=== PATIENT | female | born 1965 | race Caucasian/White ===

== ENCOUNTER 2017-09-19 15:52 | Emergency (ER) | payer MEDICAID ==
[~2017-09-19] VITALS: Ht 167.6 cm; Wt 107.0 kg
[~2017-09-19 15:52] MED LIST: AMOXICILLIN500 M2 PO; ATARAX25 MG PO; BACTRIM DS 8001 TA1 PO; CIPROFLOXACIN500 MG PO; CLARITIN10 MG PO; CORTISPORIN SUS10 ML OT; CRANBERRY1 CAP PO; FLEXERIL10 MG PO; FLONASE ALLERG9.9 ML NS; HYDROCODONE BIT1 T11 PO; IRON FERROUS S325 MG PO; IRON325 M1 PO; MACROBID100 M1 PO; MEGACE PO; MEGACE40 MG PO; MOTRIN600 MG PO; MOTRIN800 MG PO; NAPROSYN500 MG PO; PHENERGAN25 M1 PO; PREDNISONE10 MG PO; PREDNISONE20 M1 PO; PREDNISONE20 MG PO; PRILOSEC20 M2 PO; PYRIDIUM100 MG PO; PYRIDIUM200 MG PO; SEPTRA DS 800 M1 TAB PO; SUDAFED30 MG PO; TRAMADOL HCL50 MG PO; ULTRAM50 MG PO; VIBRAMYCIN100 MG PO; VICODIN 5/500 505 MG PO; ZANTAC150 MG PO; ZITHROMAX Z PA250 MG PO; ZITHROMAX250 MG PO; ZOFRAN4 MG PO
[2017-09-19 16:35] LABS: BASO # 0.1 10*3/uL (0.0-0.1); BASO % 0.5 % (0.0-1.0); EOS # 0.2 10*3/uL (0.0-0.4); EOS % 2.1 % (1.0-4.0); HEMATOCRIT 40.2 % (37.0-47.0); HEMOGLOBIN 13.7 g/dl (12.0-16.0); LYMPH # 2.2 10*3/uL (1.3-4.4); LYMPH % 24.1 % (27.0-41.0); MEAN CELL VOLUME 92.2 fl (81.0-99.0); MEAN CORPUSCULAR HGB 31.4 pg (27.0-31.0); MEAN CORPUSCULAR HGB CONC 34.1 g/dl (33.0-37.0); MEAN PLATELET VOLUME 10.2 fl (9.6-12.3); MONO # 0.5 10*3/uL (0.1-1.0); MONO % 5.9 % (3.0-9.0); NEUT # 6.2 10*3/uL (2.3-7.9); NEUT % 67.2 % (47.0-73.0); PLATELET COUNT AUTOMATED 275 10*3/uL (130-400); RED BLOOD COUNT 4.36 10*6/uL (4.10-5.10); RED CELL DISTRI WIDTH 12.7 % (0-14.5); WHITE BLOOD COUNT 9.2 10*3/uL (4.8-10.8)
[2017-09-19 16:53] LABS: ALBUMIN 3.4 gm/dl (3.1-4.5); CREATININE 1.2 mg/dL (0.55-1.02); POTASSIUM 3.8 mmol/L (3.5-5.1); TOTAL PROTEIN 7.8 gm/dL (6.4-8.2)
[2017-09-19] MEDS ORDERED: ZOFRAN ODT4 MG SL (17:06)
== END 2017-09-19 22:40 | disposition home or self-care (01) ==
LOC: ED 15:52
PROVIDERS: Nurse Practitioner Family
DX: R11.0 Nausea (principal); R10.9 Unspecified abdominal pain; Z98.51 Tubal ligation status; Z98.890 Other specified postprocedural states; Z79.899 Other long term (current) drug therapy; Z88.8 Allergy status to other drugs, medicaments and biological substances

== ENCOUNTER 2017-10-25 10:55 | Emergency (ER) | payer MEDICAID ==
[~2017-10-25] VITALS: Wt 107.5 kg
[~2017-10-25 10:55] MED LIST changes: +ZOFRAN ODT4 MG SL
[2017-10-25] MEDS ORDERED: METHYLPRED-DP4 MG PO (11:14)
[2017-10-25] MEDS ORDERED: OXYBUTYNIN CHLOR5 MG PO (11:14)
[2017-10-25] MEDS ORDERED: DULOXETINE HCL30 MG PO (11:14)
[2017-10-25] MEDS ORDERED: AVPAK AZITHROM250 M1 PO (11:14)
[2017-10-25] MEDS ORDERED: NAPROSYN500 MG PO (12:20)
== END 2017-10-25 12:23 | disposition home or self-care (01) ==
LOC: ED 10:55
DX: S80.12XA Contusion of left lower leg, initial encounter (principal); K21.9 Gastro-esophageal reflux disease without esophagitis; Z98.51 Tubal ligation status; Z98.890 Other specified postprocedural states; Z79.899 Other long term (current) drug therapy; Z88.8 Allergy status to other drugs, medicaments and biological substances; W01.198A Fall on same level from slipping, tripping and stumbling with subsequent striking against other object, initial encounter; Y93.H3 Activity, building and construction; Y92.89 Other specified places as the place of occurrence of the external cause; Y99.9 Unspecified external cause status

== ENCOUNTER 2021-04-24 12:48 | Emergency (ER) | payer OTHER ==
[~2021-04-24 12:48] MED LIST changes: +AVPAK AZITHROM250 M1 PO; +DULOXETINE HCL30 MG PO; +METHYLPRED-DP4 MG PO; +OXYBUTYNIN CHLOR5 MG PO
== END 2021-04-24 14:05 | disposition home or self-care (01) ==
LOC: ED 12:48
DX: U07.1 COVID-19 (principal); Z88.8 Allergy status to other drugs, medicaments and biological substances; Z79.2 Long term (current) use of antibiotics; Z79.899 Other long term (current) drug therapy; Z98.1 Arthrodesis status; Z98.51 Tubal ligation status; Z87.42 Personal history of other diseases of the female genital tract; Z98.890 Other specified postprocedural states

== ENCOUNTER → 2021-10-17 | Outpatient (CLI) | payer OTHER | END | disposition home or self-care (01) | LOC: MAMMO 10-10 07:45 | PROVIDERS: ATTEND Family Medicine | DX: Z12.31 Encounter for screening mammogram for malignant neoplasm of breast (principal) ==

== ENCOUNTER → 2022-03-30 | Day surgery (SDC) | payer OTHER ==
[~2022-03-30] VITALS: Ht 162.5 cm; Wt 90.7 kg
[2022-03-30 07:17] VITALS: BP 105/66
[2022-03-30 10:01] VITALS: BP 91/44
[2022-03-30 10:16] VITALS: BP 92/50
[2022-03-30 10:31] VITALS: BP 95/60
[2022-03-30 10:46] VITALS: BP 101/56
[2022-03-30 11:01] VITALS: BP 110/61
== END | disposition home or self-care (01) ==
LOC: SDC 03-28 08:00
PROVIDERS: ATTEND Orthopaedic Surgery
DX: G56.03 Carpal tunnel syndrome, bilateral upper limbs (principal); F32.9 Major depressive disorder, single episode, unspecified; G43.909 Migraine, unspecified, not intractable, without status migrainosus; Z90.49 Acquired absence of other specified parts of digestive tract; Z98.890 Other specified postprocedural states; Z98.51 Tubal ligation status

== ENCOUNTER → 2022-04-20 | Day surgery (SDC) | payer OTHER ==
[~2022-04-20] MED LIST changes: +OMNICEF300 MG PO
[2022-04-20 07:54] VITALS: BP 100/64
[2022-04-20 08:43] VITALS: BP 95/60
[2022-04-20 08:59] VITALS: BP 103/58
[2022-04-20 09:15] VITALS: BP 110/64
== END | disposition home or self-care (01) ==
LOC: SDC 04-18 14:00
PROVIDERS: ATTEND Orthopaedic Surgery
DX: G56.03 Carpal tunnel syndrome, bilateral upper limbs (principal); F32.9 Major depressive disorder, single episode, unspecified; G43.909 Migraine, unspecified, not intractable, without status migrainosus; Z90.49 Acquired absence of other specified parts of digestive tract; Z98.890 Other specified postprocedural states

== ENCOUNTER 2022-04-22 11:32 | Emergency (ER) | payer OTHER ==
[~2022-04-22] VITALS: Ht 162.5 cm; Wt 90.7 kg
[~2022-04-22 11:32] MED LIST changes: -OMNICEF300 MG PO
[2022-04-22 12:24] LABS: HEMATOCRIT 44.2 % (37.0-47.0); MEAN CELL VOLUME 93.2 fl (81.0-99.0); MEAN CORPUSCULAR HGB 31.9 pg (27.0-31.0); MEAN CORPUSCULAR HGB CONC 34.2 g/dl (33.0-37.0); MEAN PLATELET VOLUME 10.2 fl (9.6-12.3); PLATELET COUNT AUTOMATED 213 10*3/uL (130-400); RED BLOOD COUNT 4.74 10*6/uL (4.10-5.10); WHITE BLOOD COUNT 10.4 10*3/uL (4.8-10.8)
[2022-04-22 12:25] LABS: MANUAL DIFF REFLEX YES
[2022-04-22 12:40] LABS: ALKALINE PHOSPHATASE 96 U/L (45-117); BUN 10 mg/dl (7-24); CHLORIDE 107 mmol/L (98-107); CREATININE 1.14 mg/dL (0.55-1.02); SGOT/AST 20 IU/L (3-35); SGPT/ALT 18 U/L (12-78); SODIUM 138 mmol/L (136-145); TOTAL PROTEIN 7.7 gm/dL (6.4-8.2)
[2022-04-22 12:42] LABS: POTASSIUM 3.9 mmol/L (3.5-5.1)
[2022-04-22 12:43] LABS: PLATELET SUFFICIENCY NORMAL (NORMAL); POLYCHROMASIA SLIGHT; TOTAL CELLS COUNTED 100 #CELLS
[2022-04-22 14:03] LABS: BILIRUBIN Negative (Negative); BLOOD Trace-Intact (Negative); CLARITY Turbid (Clear); COLOR Yellow (Yellow); GLUCOSE Negative (Negative); KETONE Negative (Negative); LEUKO ESTERASE 3+ (Negative); NITRITE Negative (Negative)
[2022-04-22 14:18] LABS: BACTERIA 4+; EPITHELIAL CELLS TNTC; WBC TNTC wbc/hpf (0-5)
[2022-04-22] MEDS ORDERED: OMNICEF300 MG PO (14:26)
== END 2022-04-22 14:40 | disposition home or self-care (01) ==
LOC: ED 11:32
PROVIDERS: Student in an Organized Health Care Education/Training Program
DX: U07.1 COVID-19 (principal); B34.9 Viral infection, unspecified; N39.0 Urinary tract infection, site not specified; Z88.8 Allergy status to other drugs, medicaments and biological substances; Z98.51 Tubal ligation status; Z90.49 Acquired absence of other specified parts of digestive tract

== ENCOUNTER → 2022-06-05 | Outpatient (CLI) | payer OTHER ==
[~2022-06-05] MED LIST changes: +OMNICEF300 MG PO
== END | disposition home or self-care (01) ==
LOC: RAD 11:36
PROVIDERS: ATTEND Family Medicine
DX: J06.9 Acute upper respiratory infection, unspecified (principal)

== ENCOUNTER 2022-07-19 11:31 | Emergency (ER) | payer OTHER ==
[~2022-07-19] VITALS: Ht 165.1 cm; Wt 86.2 kg
[2022-07-19] MEDS ORDERED: IBU800 M2 PO (12:21)
== END 2022-07-19 13:48 | disposition home or self-care (01) ==
LOC: ED 11:31
DX: S92.901A Unspecified fracture of right foot, initial encounter for closed fracture (principal); Z88.8 Allergy status to other drugs, medicaments and biological substances; Z98.51 Tubal ligation status; Z90.49 Acquired absence of other specified parts of digestive tract; Z98.890 Other specified postprocedural states; X50.1XXA Overexertion from prolonged static or awkward postures, initial encounter; Y93.89 Activity, other specified; Y92.89 Other specified places as the place of occurrence of the external cause; Y99.8 Other external cause status

== ENCOUNTER → 2022-07-28 | Outpatient (CLI) | payer OTHER ==
[~2022-07-28] MED LIST changes: +IBU800 M2 PO
== END | disposition home or self-care (01) ==
LOC: RAD 11:36
PROVIDERS: ATTEND Orthopaedic Surgery
DX: S92.901A Unspecified fracture of right foot, initial encounter for closed fracture (principal); X58.XXXA Exposure to other specified factors, initial encounter; Y93.89 Activity, other specified; Y92.89 Other specified places as the place of occurrence of the external cause; Y99.8 Other external cause status

== ENCOUNTER → 2022-08-11 | Outpatient (CLI) | payer OTHER | END | disposition home or self-care (01) | LOC: ORTHO 04:35 | PROVIDERS: ATTEND Orthopaedic Surgery | DX: S92.351D Displaced fracture of fifth metatarsal bone, right foot, subsequent encounter for fracture with routine healing (principal); X58.XXXD Exposure to other specified factors, subsequent encounter ==

== ENCOUNTER 2022-11-11 10:48 | Emergency (ER) | payer OTHER ==
[~2022-11-11] VITALS: Ht 162.5 cm; Wt 93.0 kg
[2022-11-11] MEDS ORDERED: POLYMYXIN B/TRI10 M1 OPH (11:19)
== END 2022-11-11 11:21 | disposition home or self-care (01) ==
LOC: ED 10:48
DX: H10.9 Unspecified conjunctivitis (principal); G43.909 Migraine, unspecified, not intractable, without status migrainosus; Z88.8 Allergy status to other drugs, medicaments and biological substances; Z98.51 Tubal ligation status; Z98.890 Other specified postprocedural states

== ENCOUNTER → 2022-12-30 | Outpatient (CLI) | payer OTHER ==
[~2022-12-30] MED LIST changes: +POLYMYXIN B/TRI10 M1 OPH
[2022-12-30 08:47] LABS: BASO # 0.1 10*3/uL (0.0-0.1); BASO % 1.1 % (0.0-1.0); EOS # 0.2 10*3/uL (0.0-0.4); EOS % 2.9 % (1.0-4.0); HEMATOCRIT 42.8 % (37.0-47.0); LYMPH # 1.8 10*3/uL (1.3-4.4); LYMPH % 29.6 % (27.0-41.0); MEAN CELL VOLUME 94.5 fl (81.0-99.0); MEAN CORPUSCULAR HGB 31.1 pg (27.0-31.0); MEAN CORPUSCULAR HGB CONC 32.9 g/dl (33.0-37.0); MONO # 0.4 10*3/uL (0.1-1.0); NEUT # 3.6 10*3/uL (2.3-7.9); NEUT % 59.2 % (47.0-73.0); PLATELET COUNT AUTOMATED 236 10*3/uL (130-400); RED BLOOD COUNT 4.53 10*6/uL (4.10-5.10); RED CELL DISTRI WIDTH 12.1 % (0-14.5); WHITE BLOOD COUNT 6.1 10*3/uL (4.8-10.8)
[2022-12-30 09:20] LABS: ALKALINE PHOSPHATASE 92 U/L (46-116); BUN 10 mg/dl (9-23); CHLORIDE 108 mmol/L (98-107); CHOLESTEROL 236 mg/dL (<200); LDL CHOLESTEROL 161 mg/dL (9-159); THYROID STIM HORMONE (HS) 4.389 uIU/ml (0.550-4.780); TOTAL PROTEIN 6.8 gm/dL (6.0-8.0); TRIGLYCERIDES 191 mg/dl (<150)
[2022-12-30 09:22] LABS: SGPT/ALT < 7 U/L (10-49)
== END | disposition home or self-care (01) ==
LOC: LAB 08:23
PROVIDERS: ATTEND Student in an Organized Health Care Education/Training Program
DX: Z13.220 Encounter for screening for lipoid disorders (principal); I95.9 Hypotension, unspecified; R73.9 Hyperglycemia, unspecified; R53.83 Other fatigue

== ENCOUNTER 2023-04-04 16:19 | Emergency (ER) | payer OTHER ==
[~2023-04-04] VITALS: Ht 162.5 cm; Wt 92.1 kg
[2023-04-04] MEDS ORDERED: TRAZODONE50 MG PO (16:37)
[2023-04-04] MEDS ORDERED: ZOLOFT50 MG PO (16:37)
[2023-04-04 19:42] LABS: BASO # 0.1 10*3/uL (0.0-0.1); BASO % 0.7 % (0.0-1.0); EOS # 0.2 10*3/uL (0.0-0.4); EOS % 1.8 % (1.0-4.0); HEMATOCRIT 42.2 % (37.0-47.0); LYMPH # 2.3 10*3/uL (1.3-4.4); LYMPH % 27.1 % (27.0-41.0); MEAN CELL VOLUME 96.6 fl (81.0-99.0); MEAN CORPUSCULAR HGB 31.1 pg (27.0-31.0); MEAN CORPUSCULAR HGB CONC 32.2 g/dl (33.0-37.0); MEAN PLATELET VOLUME 9.8 fl (9.6-12.3); MONO # 0.5 10*3/uL (0.1-1.0); MONO % 6.1 % (3.0-9.0); NEUT # 5.3 10*3/uL (2.3-7.9); NEUT % 64.1 % (47.0-73.0); PLATELET COUNT AUTOMATED 252 10*3/uL (130-400); RED BLOOD COUNT 4.37 10*6/uL (4.10-5.10); RED CELL DISTRI WIDTH 12.7 % (0-14.5); WHITE BLOOD COUNT 8.3 10*3/uL (4.8-10.8)
[2023-04-04 20:04] LABS: BILIRUBIN Negative (Negative); BLOOD Negative (Negative); CLARITY Clear (Clear); COLOR Yellow (Yellow); GLUCOSE Negative (Negative); KETONE Trace (Negative); LEUKO ESTERASE 1+ (Negative); NITRITE Negative (Negative); PH 5.5 (4.5-8.0); SPECIFIC GRAVITY 1.025 (1.001-1.030); UROBILINOGEN 0.2 E.U./dl (0.0-1.0)
[2023-04-04 20:11] LABS: POTASSIUM 3.7 mmol/L (3.4-5.1); TOTAL PROTEIN 7.3 gm/dL (6.0-8.0)
[2023-04-04 20:17] LABS: BACTERIA 1+; CALCIUM OXALATE CRYSTALS 1+
[2023-04-04] MEDS ORDERED: PEPCID40 MG PO (21:38)
[2023-04-04] MEDS ORDERED: SEPTDS PO (21:38)
[2023-04-04] MEDS ORDERED: ONDANSETRON HYDR4 M1 PO (21:38)
== END 2023-04-04 21:45 | disposition home or self-care (01) ==
LOC: ED 16:19
PROVIDERS: Emergency Medicine
DX: K52.9 Noninfective gastroenteritis and colitis, unspecified (principal); N39.0 Urinary tract infection, site not specified; K92.1 Melena; F17.200 Nicotine dependence, unspecified, uncomplicated; Z88.8 Allergy status to other drugs, medicaments and biological substances; Z79.899 Other long term (current) drug therapy; Z98.51 Tubal ligation status; Z87.42 Personal history of other diseases of the female genital tract; Z98.890 Other specified postprocedural states

== ENCOUNTER → 2023-09-04 | Outpatient (CLI) | payer OTHER ==
[~2023-09-04] MED LIST changes: +ONDANSETRON HYDR4 M1 PO; +PEPCID40 MG PO; +SEPTDS PO; +TRAZODONE50 MG PO; +ZOLOFT50 MG PO
== END | disposition home or self-care (01) ==
LOC: RAD 11:25
PROVIDERS: ATTEND Family Medicine
DX: M79.651 Pain in right thigh (principal)

== ENCOUNTER 2023-12-07 04:23 | Emergency (ER) | payer OTHER ==
[~2023-12-07] VITALS: Wt 93.4 kg
[2023-12-07] MEDS ORDERED: FAMOTIDINE 50 ML IV ONE (04:30)
[2023-12-07] MEDS ORDERED: diphenhydrAMINE hydrochloride 50 MG/ML VIAL IV ONE (04:30)
[2023-12-07] MEDS ORDERED: methylPREDNISolone sod succ 125 MG VIAL IV ONE (04:30)
== END 2023-12-07 06:01 | disposition home or self-care (01) ==
LOC: ED 04:23
DX: R21 Rash and other nonspecific skin eruption (principal); T78.40XA Allergy, unspecified, initial encounter; G43.909 Migraine, unspecified, not intractable, without status migrainosus; Z88.8 Allergy status to other drugs, medicaments and biological substances; Z98.51 Tubal ligation status; Z98.890 Other specified postprocedural states; Z90.49 Acquired absence of other specified parts of digestive tract; X58.XXXA Exposure to other specified factors, initial encounter

== ENCOUNTER 2023-12-09 09:41 | Emergency (ER) | payer OTHER ==
[~2023-12-09] VITALS: Ht 162.5 cm; Wt 87.5 kg
[2023-12-09] MEDS ORDERED: diphenhydrAMINE hydrochloride 50 MG/ML VIAL IV ONE (10:10)
[2023-12-09] MEDS ORDERED: FAMOTIDINE 50 ML IV ONE (10:10)
[2023-12-09] MEDS ORDERED: methylPREDNISolone sod succ 125 MG VIAL IV ONE (10:10)
== END 2023-12-09 11:01 | disposition home or self-care (01) ==
LOC: ED 09:41
DX: L50.9 Urticaria, unspecified (principal); T36.1X5A Adverse effect of cephalosporins and other beta-lactam antibiotics, initial encounter; G43.909 Migraine, unspecified, not intractable, without status migrainosus; Z88.1 Allergy status to other antibiotic agents; Z88.8 Allergy status to other drugs, medicaments and biological substances; Z98.51 Tubal ligation status; Z90.49 Acquired absence of other specified parts of digestive tract; Z98.890 Other specified postprocedural states; Y92.89 Other specified places as the place of occurrence of the external cause

== ENCOUNTER 2024-07-02 09:22 | Emergency (ER) | payer OTHER ==
[~2024-07-02] VITALS: Ht 162.5 cm; Wt 96.7 kg
[2024-07-02] MEDS ORDERED: SERTRALINE HYD100 MG PO (09:32)
[2024-07-02] MEDS ORDERED: AVPAK AZITHROM250 M1 PO (09:50)
== END 2024-07-02 09:54 | disposition home or self-care (01) ==
LOC: ED 09:22
DX: J32.9 Chronic sinusitis, unspecified (principal); I10 Essential (primary) hypertension; Z88.1 Allergy status to other antibiotic agents; Z88.8 Allergy status to other drugs, medicaments and biological substances; Z79.899 Other long term (current) drug therapy; Z87.42 Personal history of other diseases of the female genital tract

== ENCOUNTER 2024-08-03 22:33 | Emergency (ER) | payer OTHER ==
[~2024-08-03] VITALS: Ht 167.6 cm; Wt 81.6 kg
[~2024-08-03 22:33] MED LIST changes: +SERTRALINE HYD100 MG PO
[2024-08-03] MEDS ORDERED: methylPREDNISolone sod succ 125 MG VIAL IM ONE (22:50)
[2024-08-03] MEDS ORDERED: PREDNISONE20 M1 PO (23:19)
== END 2024-08-03 23:35 | disposition home or self-care (01) ==
LOC: ED 22:33
DX: U07.1 COVID-19 (principal); R20.2 Paresthesia of skin; G43.909 Migraine, unspecified, not intractable, without status migrainosus; Z88.1 Allergy status to other antibiotic agents; Z88.8 Allergy status to other drugs, medicaments and biological substances; Z90.49 Acquired absence of other specified parts of digestive tract; Z98.890 Other specified postprocedural states